=== PATIENT | female | born 1990 | race African-American/Black ===

== ENCOUNTER 2016-05-29 19:55 | Emergency (ER) | payer OTHER ==
[2016-05-29] MEDS ORDERED: KETOROLAC 60 MG/2 ML VIAL IM ONE (20:24)
== END 2016-05-29 20:42 | disposition home or self-care (01) ==
LOC: ER 19:55
DX: H65.03 Acute serous otitis media, bilateral (principal); F17.210 Nicotine dependence, cigarettes, uncomplicated; J02.0 Streptococcal pharyngitis; J01.10 Acute frontal sinusitis, unspecified; J01.00 Acute maxillary sinusitis, unspecified
CPT/HCPCS: 87880; 96372